=== PATIENT | female | born 1940 | race Caucasian/White ===

== ENCOUNTER 2016-10-21 13:49 | Inpatient (IN) | payer MEDICARE, BC ==
[~2016-10-21] VITALS: Ht 180.3 cm; Wt 75.1 kg
[2016-10-22] MEDS ORDERED: ALPR.25 PO (10:18)
[2016-10-22] MEDS ORDERED: LACTCAP8 PO (10:18)
[2016-10-22] MEDS ORDERED: APIX2.5T PO (10:18)
[2016-10-22] MEDS ORDERED: MIRA25TA PO (10:18)
[2016-10-22] MEDS ORDERED: [UNRECOGNIZED DRUG - CODE] (10:19)
[2016-10-29 11:55] VITALS: BP 144/69; PULSE 85; RESP 16; TEMP 97.2; O2SAT 98
[2016-10-29] MEDS ORDERED: METRONIDAZOLE 500 MG/100 ML ISONTONIC SOLN IV ONE (12:00)
[2016-10-29] MEDS ORDERED: DEXT 5%-NACL 0.9% 1000 ML INJ 1,000 ML IV SCH (12:00)
[2016-10-29] MEDS ORDERED: METOPROLOL TARTRATE 25 MG TAB PO PRN (12:00)
[2016-10-29] MEDS ORDERED: CHLORHEXIDINE GLUCONATE 2 % 1 PACK (2 CLOTHS) TOPICAL PRN (12:00)
[2016-10-29] MEDS ORDERED: SODIUM CHLORID 0.9% 500 ML IV PRN (12:00)
[2016-10-29] MEDS ORDERED: ONDANSETRON HCL 4 MG/2 ML VIAL IV PUSH ONE (12:00)
[2016-10-29] MEDS ORDERED: PROPOFOL 200 MG/20 ML AMP IV ONE (12:00)
[2016-10-29] MEDS ORDERED: VECURONIUM BROMIDE 10 MG VIAL IV ONE (12:00)
[2016-10-29] MEDS ORDERED: LACTATED RINGER'S 1000 ML INJ 3,000 ML IV ONE (12:00)
[2016-10-29] MEDS ORDERED: PHENYLEPH/NS 1000 MCG/10 ML SYR IV ONE (12:00)
[2016-10-29] MEDS ORDERED: LACTATED RINGER'S 1000 ML IV PRN (12:00)
[2016-10-29] MEDS ORDERED: SUGAMMADEX SODIUM 200 MG/2 ML VIAL IV PUSH ONE ×2 (12:00)
[2016-10-29] MEDS ORDERED: ceFAZolin 2 GM PREMIX 50 ML IV ONE (12:00)
[2016-10-29] MEDS ORDERED: INSULIN HUMAN REGULAR 1,000 UNITS/10 ML VIAL SQ PRN (12:00)
[2016-10-29] MEDS ORDERED: VANCOMYCIN 1,000 MG/NS 250 ML IV ONE ×2 (15:00)
[2016-10-29] MEDS ORDERED: CLINDAMYCIN PHOS 600 MG/4 ML VIAL ONE (15:13)
[2016-10-29] MEDS ORDERED: MIDAZOLAM HCL 2 MG/2 ML VIAL ONE ×2 (15:26→20:52)
[2016-10-29] MEDS ORDERED: DEXAMETHASONE SOD PHOS 4 MG/ML VIAL ONE (15:27)
[2016-10-29] MEDS ORDERED: FAMOTIDINE 20 MG/2 ML VIAL ONE (15:27)
[2016-10-29] MEDS ORDERED: STERILE WATER FOR INJ 20 ML VIAL ONE (16:40)
--- NOTE | 2016-10-29 16:49 | MP ---
cc: LORRAINE LOZA DATE OF SURGERY: 10/29/2016 PREOPERATIVE DIAGNOSIS: History of colon cancer. POSTOPERATIVE DIAGNOSIS History of colon cancer. PROCEDURE: Cystoscopy with bilateral ureteral catheter placement. SURGEON Lorraine Loza MD. ANESTHESIA: General endotracheal anesthesia FLUIDS: 100 cc crystalloid. ESTIMATED BLOOD LOSS: There was no blood loss. COMPLICATIONS: No complications. DRAINS: Drains were two, 5-Palauan bilateral ureteral catheters and a 16-Palauan Figueroa. HISTORY: Ms. Carol Osullivan is a 76-year-old female who was elected to undergo robotic-assisted laparoscopic colectomy by Dr. Cormier for history of colon cancer. Request was made for bilateral ureteral catheter placement. The patient was brought to operating room identified by myself as Carol Ragsdale. She is placed in dorsal lithotomy position, prepped in usual sterile fashion, received preprocedure antibiotics, and general endotracheal tube anesthesia was administered. A 22-Palauan cystoscope was inserted bladder and wild cystoscopy did not reveal any abnormalities. The left ureteral orifice was identified and a 5-Palauan open ended catheter was inserted into the left ureteral orifice and up into the kidney without difficulty. This was again repeated on the right side without difficulty. The 16-Palauan Figueroa was then inserted into the bladder and catheters were attached to the Figueroa catheter. She tolerated the procedure well. Lorraine ANGEL/deepali /4:30 PM /4:39 PM
[2016-10-29] MEDS ORDERED: fentaNYL CITRATE 250 MCG/5 ML AMP ONE ×2 (17:06→20:53)
[2016-10-29] MEDS ORDERED: MORPHINE SULFATE 4 MG/ML INJ ONE ×2 (17:06)
[2016-10-29] MEDS ORDERED: DO NOT ADM ANY ANTICOAGULANT DRUGS PRN (22:00)
[2016-10-29] MEDS ORDERED: ENALAPRILAT 2.5 MG/2 ML VIAL IV PRN (22:00)
[2016-10-29] MEDS ORDERED: BENZOCAINE 6 MG/MENTHOL 10 MG LOZENGE BUCCAL PRN (22:00)
[2016-10-29] MEDS ORDERED: SODIUM CHLORIDE 0.9% FLUSH 5 ML FLUSH IVF PRN (22:00)
[2016-10-29] MEDS ORDERED: POTASSIUM CHLOR 20 MEQ PREMIX 100 ML IV PRN (22:00)
[2016-10-29] MEDS ORDERED: NALOXONE HCL 0.4 MG/ML AMP IV PRN (22:00)
[2016-10-29] MEDS ORDERED: MORPHINE SULFATE 30 MG/30 ML PCA IV SCH (22:00)
[2016-10-29] MEDS ORDERED: ENALAPRILAT 1.25 MG/ML VIAL IV PRN (22:00)
[2016-10-29] MEDS: PCA - TOTAL MG MORPHINE DELIVERED PER SHIFT SCH (22:00)
[2016-10-29] MEDS ORDERED: ACETAMINOPHEN/HYDROcodone 325 MG/5 MG TAB PO PRN ×2 (22:00)
[2016-10-29] MEDS ORDERED: ACETAMINOPHEN 325 MG TAB PO PRN (22:00)
[2016-10-29] MEDS ORDERED: POTASSIUM CHLOR 40 MEQ PREMIX 100 ML IV PRN (22:00)
[2016-10-29] MEDS ORDERED: Post-op Orders (for Pharmacy) MISC XX ONE (22:00)
[2016-10-29] MEDS ORDERED: D5-1/2 NS + KCL 20 MEQ INJ 1,000 ML ONE (22:23)
[2016-10-29] MEDS ORDERED: MEPERIDINE HCL 25 MG/ML VIAL ONE (22:32)
[2016-10-29 22:33] LABS: AUTOMATED NEUTROPHIL # 10.2 TH/MM3 (1.8-7.7); BASOPHIL # 0.1 TH/MM3 (0-0.2); BASOPHIL % 0.6 % (0.0-2.0); HEMATOCRIT 38.4 % (35.0-46.0); HEMO FLAGS DIFF FINAL; LYMPH % 3.8 % (9.0-44.0); LYMPHOCYTE # 0.4 TH/MM3 (1.0-4.8); MEAN CELL VOLUME 92.8 FL (80.0-100.0); MEAN CORPUSCULAR HEMOGLOBIN 29.9 PG (27.0-34.0); MEAN CORPUSCULAR HGB CONC 32.2 % (32.0-36.0); MONO % 2.3 % (0.0-8.0); NEUT % 93.3 % (16.0-70.0); PLATELET COUNT 202 TH/MM3 (150-450); RED BLOOD COUNT 4.14 MIL/MM3 (4.00-5.30); RED CELL DISTRIBUTION WIDTH 14.3 % (11.6-17.2); WHITE BLOOD COUNT 10.9 TH/MM3 (4.0-11.0)
[2016-10-29] MEDS: KETOROLAC TROMETHAMINE 30 MG/ML (IVP) VIAL IVP SCH (22:40)
[2016-10-29 22:58] LABS: BICARBONATE 19.9 MEQ/L (21.0-32.0); POTASSIUM 4.4 MEQ/L (3.5-5.1)
[2016-10-29] MEDS: SODIUM CHLORIDE 0.9% FLUSH 5 ML FLUSH IVF SCH (23:00)
[2016-10-29] MEDS ORDERED: metroNIDAZOLE 500 MG INJ 100 ML IV SCH (23:00)
[2016-10-29] MEDS: D5-NS + KCL 20 MEQ INJ 1,000 ML IV SCH (23:00)
[2016-10-30] VITALS (14 sets, daily range): BP systolic 91–159; BP diastolic 51–65; PULSE 68–85; RESP 14–19; TEMP 96.5–98.7; O2SAT 92–97
[2016-10-30] MEDS: metroNIDAZOLE 500 MG INJ 100 ML IV SCH ×3 (00:15→16:49)
[2016-10-30] MEDS ORDERED: VANCOMYCIN INJ 1,000 MG in SODIUM CHLOR 0.9% 250 ML INJ 250 ML IV SCH (03:00)
[2016-10-30] MEDS: KETOROLAC TROMETHAMINE 30 MG/ML (IVP) VIAL IVP SCH ×4 (03:56→21:49)
[2016-10-30] MEDS: PCA - TOTAL MG MORPHINE DELIVERED PER SHIFT SCH ×3 (05:26→21:50)
[2016-10-30] MEDS: D5-NS + KCL 20 MEQ INJ 1,000 ML IV SCH ×3 (05:26→21:49)
[2016-10-30 07:52] LABS: AUTOMATED NEUTROPHIL # 10.2 TH/MM3 (1.8-7.7); BASOPHIL % 0.2 % (0.0-2.0); HEMO FLAGS DIFF FINAL; LYMPH % 4.2 % (9.0-44.0); LYMPHOCYTE # 0.5 TH/MM3 (1.0-4.8); MEAN CELL VOLUME 92.6 FL (80.0-100.0); MEAN CORPUSCULAR HEMOGLOBIN 30.5 PG (27.0-34.0); MEAN CORPUSCULAR HGB CONC 32.9 % (32.0-36.0); MONO % 4.1 % (0.0-8.0); NEUT % 91.5 % (16.0-70.0); PLATELET COUNT 192 TH/MM3 (150-450); RED BLOOD COUNT 3.67 MIL/MM3 (4.00-5.30); RED CELL DISTRIBUTION WIDTH 14.2 % (11.6-17.2); WHITE BLOOD COUNT 11.2 TH/MM3 (4.0-11.0)
[2016-10-30 08:20] LABS: BICARBONATE 23.7 MEQ/L (21.0-32.0); POTASSIUM 4.5 MEQ/L (3.5-5.1)
[2016-10-30] MEDS ORDERED: MYRBETRIQ 25 MG PO SCH (09:00)
[2016-10-30] MEDS: SODIUM CHLORIDE 0.9% FLUSH 5 ML FLUSH IVF SCH ×2 (09:00→21:00)
--- NOTE | 2016-10-30 09:08 | HHI.PR ---
Subjective Remarks C/R Surg POD #1 afebrile, VSS UO adeq Objective - Vital Signs Date Time Temp Pulse Resp B/P Pulse Ox O2 Delivery O2 Flow Rate FiO2 10/30/16 06:00 70 10/30/16 06:00 16 10/30/16 04:10 97 Nasal Cannula 3.00 10/30/16 04:10 97.5 104/56 Result Diagram: 10/30/16 0703 10/30/16 0703 Objective Remarks PE alert Abd - soft, wounds clean/dry A/P Assessment and Plan Imp: stable post-op OOB decr IVF tx to floor Gaetano Pitts MD Oct 30, 2016 09:08
[2016-10-30] MEDS: PANTOPRAZOLE SODIUM 40 MG VIAL IVP SCH (10:53)
[2016-10-30] MEDS: diphenhydrAMINE HCL 50 MG/ML VIAL IV PRN ×2 (12:32→18:19)
[2016-10-30] MEDS: HEPARIN SODIUM - SQ 10,000 UNITS/ML VIAL SQ SCH (21:49)
[2016-10-31] VITALS (8 sets, daily range): BP systolic 93–126; BP diastolic 50–58; PULSE 74–103; RESP 16–18; TEMP 96.4–98.4; O2SAT 92–97
[2016-10-31] MEDS: KETOROLAC TROMETHAMINE 30 MG/ML (IVP) VIAL IVP SCH ×4 (04:18→21:30)
[2016-10-31] MEDS: PCA - TOTAL MG MORPHINE DELIVERED PER SHIFT SCH (04:18)
[2016-10-31] MEDS: SODIUM CHLORIDE 0.9% FLUSH 5 ML FLUSH IVF SCH ×2 (08:55→21:00)
[2016-10-31] MEDS: HEPARIN SODIUM - SQ 10,000 UNITS/ML VIAL SQ SCH ×2 (09:02→21:30)
[2016-10-31] MEDS: PANTOPRAZOLE SODIUM 40 MG VIAL IVP SCH (09:03)
--- NOTE | 2016-10-31 09:41 | HHI.PR ---
Subjective Remarks C/R Surg POD #2 afebrile, VSS UO adeq +hungry Objective - Vital Signs Date Time Temp Pulse Resp B/P Pulse Ox O2 Delivery O2 Flow Rate FiO2 10/31/16 04:23 94 Nasal Cannula 2.00 10/31/16 04:22 97.8 77 17 93/51 Result Diagram: 10/30/16 0703 10/30/16 0703 Objective Remarks PE alert Abd - soft, wounds clean/dry min tympany A/P Assessment and Plan Imp: OOB decr IVF adv diet Gaetano Pitts MD Oct 31, 2016 09:41
[2016-10-31 15:55] LABS: AUTOMATED NEUTROPHIL # 5.8 TH/MM3 (1.8-7.7); BASOPHIL % 0.3 % (0.0-2.0); EOSINOPHIL # 0.4 TH/MM3 (0-0.4); EOSINOPHIL % 5.4 % (0.0-4.0); HEMO FLAGS DIFF FINAL; LYMPH % 14.7 % (9.0-44.0); LYMPHOCYTE # 1.2 TH/MM3 (1.0-4.8); MEAN CELL VOLUME 93.9 FL (80.0-100.0); MEAN CORPUSCULAR HEMOGLOBIN 30.5 PG (27.0-34.0); MEAN CORPUSCULAR HGB CONC 32.5 % (32.0-36.0); MONO % 8.7 % (0.0-8.0); NEUT % 70.9 % (16.0-70.0); PLATELET COUNT 176 TH/MM3 (150-450); RED BLOOD COUNT 3.41 MIL/MM3 (4.00-5.30); RED CELL DISTRIBUTION WIDTH 14.7 % (11.6-17.2); WHITE BLOOD COUNT 8.1 TH/MM3 (4.0-11.0)
[2016-10-31] MEDS: D5-NS + KCL 20 MEQ INJ 1,000 ML IV SCH (16:00)
[2016-10-31 16:25] LABS: BICARBONATE 24.7 MEQ/L (21.0-32.0); POTASSIUM 4.9 MEQ/L (3.5-5.1)
[2016-11-01 00:01] VITALS: BP 131/64; PULSE 98; RESP 17; TEMP 98.6; O2SAT 97
[2016-11-01] MEDS: KETOROLAC TROMETHAMINE 30 MG/ML (IVP) VIAL IVP SCH ×3 (05:19→16:51)
[2016-11-01] MEDS: D5-NS + KCL 20 MEQ INJ 1,000 ML IV SCH ×3 (05:19→16:35)
[2016-11-01] MEDS: ONDANSETRON HCL 4 MG/2 ML VIAL IV PRN ×3 (06:19→18:08)
[2016-11-01 07:16] LABS: AUTOMATED NEUTROPHIL # 5.2 TH/MM3 (1.8-7.7); BASOPHIL % 0.3 % (0.0-2.0); EOSINOPHIL # 0.5 TH/MM3 (0-0.4); EOSINOPHIL % 6.9 % (0.0-4.0); HEMATOCRIT 33.6 % (35.0-46.0); HEMO FLAGS DIFF FINAL; LYMPH % 13.8 % (9.0-44.0); MEAN CORPUSCULAR HEMOGLOBIN 31.2 PG (27.0-34.0); MEAN CORPUSCULAR HGB CONC 33.6 % (32.0-36.0); MONO % 8.8 % (0.0-8.0); NEUT % 70.2 % (16.0-70.0); PLATELET COUNT 195 TH/MM3 (150-450); RED BLOOD COUNT 3.61 MIL/MM3 (4.00-5.30); RED CELL DISTRIBUTION WIDTH 14.5 % (11.6-17.2); WHITE BLOOD COUNT 7.3 TH/MM3 (4.0-11.0)
[2016-11-01 07:49] LABS: BICARBONATE 24.6 MEQ/L (21.0-32.0); POTASSIUM 4.5 MEQ/L (3.5-5.1)
[2016-11-01 08:00] VITALS: BP 145/67; PULSE 100; RESP 18; TEMP 97.2; O2SAT 97
[2016-11-01] MEDS: HEPARIN SODIUM - SQ 10,000 UNITS/ML VIAL SQ SCH ×2 (08:20→20:42)
[2016-11-01] MEDS: PANTOPRAZOLE SODIUM 40 MG VIAL IVP SCH (08:21)
[2016-11-01] MEDS: SODIUM CHLORIDE 0.9% FLUSH 5 ML FLUSH IVF SCH ×2 (08:21→20:41)
[2016-11-01 12:00] VITALS: BP 137/71; PULSE 96; RESP 17; TEMP 97.3; O2SAT 90
--- NOTE | 2016-11-01 14:54 | HHI.PR ---
Subjective Remarks POD#3 s/p LAR, DEJAN for diverticulitis Very fatigued, pain well controlled, breathing mildly difficult Objective Vital Signs Date Time Temp Pulse Resp B/P Pulse Ox O2 Delivery O2 Flow Rate FiO2 11/01/16 12:00 97.3 96 17 137/71 90 11/01/16 08:00 97.2 100 18 145/67 97 11/01/16 06:19 18 11/01/16 00:01 98.6 98 17 131/64 97 10/31/16 21:30 Nasal Cannula 2.00 10/31/16 20:39 98.4 100 18 123/58 93 10/31/16 19:00 93 10/31/16 16:00 96.4 103 18 126/58 93 I/O 10/31/16 10/31/16 10/31/16 11/01/16 11/01/16 11/01/16 07:00 15:00 23:00 07:00 15:00 23:00 Intake Total 885 ml 1765 ml 863 ml 360 ml 240 ml Output Total 300 ml 200 ml 800 ml 1000 ml Balance 585 ml 1565 ml 63 ml -640 ml 240 ml Intake Oral 360 ml 1380 ml 480 ml 360 ml 240 ml IV Total 525 ml 385 ml 383 ml Output Urine Total 300 ml 200 ml 800 ml 1000 ml # Voids 0 6 # Bowel Movements 0 0 1 5 Result Diagram: 11/01/16 0549 11/01/16 0549 Objective Remarks Abdomen soft, moderate distension, tender Wounds clean Assessment and Plan Assessment and Plan Still quite bloated Go slow on PO Mobilize as much as possible Reiterated pulmonary toilet Dang Cormier MD Nov 01, 2016 14:54
[2016-11-01 16:00] VITALS: BP 143/72; PULSE 107; RESP 17; TEMP 97.5; O2SAT 96
[2016-11-01 20:00] VITALS: BP 141/95; PULSE 87; RESP 20; TEMP 97.7; O2SAT 99
[2016-11-01] MEDS: ALPRAZolam 0.25 MG TAB PO PRN (22:14)
[2016-11-02] VITALS: BP 113/56; PULSE 96; RESP 19; TEMP 98.8; O2SAT 98
[2016-11-02] MEDS: D5-NS + KCL 20 MEQ INJ 1,000 ML IV SCH (00:17)
[2016-11-02] MEDS: ONDANSETRON HCL 4 MG/2 ML VIAL IV PRN ×3 (05:17→21:44)
[2016-11-02] MEDS: PANTOPRAZOLE SODIUM 40 MG VIAL IVP SCH (07:52)
[2016-11-02] MEDS: HEPARIN SODIUM - SQ 10,000 UNITS/ML VIAL SQ SCH ×2 (07:53→21:43)
[2016-11-02] MEDS: SODIUM CHLORIDE 0.9% FLUSH 5 ML FLUSH IVF SCH ×2 (07:53→21:00)
[2016-11-02 08:00] VITALS: BP 116/55; PULSE 87; RESP 17; TEMP 96.8; O2SAT 99
--- NOTE | 2016-11-02 09:32 | MP ---
cc: SADAF CORMIER M.D., KELLY J. DATE OF SURGERY October 29, 2016 PREOPERATIVE DIAGNOSIS Diverticulitis. POSTOPERATIVE DIAGNOSIS Diverticulitis with adhesions. PROCEDURE 1. Robotic/laparoscopic extensive lysis of adhesions. 2. Robotic low anterior resection. 3. Robotic takedown of splenic flexure. SURGEON [employer] Ant ANESTHESIA General per ET tube. ESTIMATED BLOOD LOSS 450 cc. OPERATIVE INDICATIONS The patient is a 76-year-old female with a history of severe complicated diverticulitis. OPERATIVE FINDINGS The liver was visibly normal. The gallbladder was not visualized. The female organs were not present. The sigmoid colon was inflamed and adherent down into the pelvis. It was folded over on itself three times. OPERATIVE COURSE The patient was brought to the operating room, placed in the supine position. After induction of general anesthesia the patient was placed in Abdirashid stirrups and all bony prominences were carefully padded. The skin of the anterior abdominal wall as well as the perineal area was then prepped and draped in the usual sterile fashion. Dr. Loza then came in and performed cystoscopy with placement of bilateral ureteral catheters, please see his operative note for details. A site was then chosen for the camera just above the umbilicus. The 5 trocar was placed just under the right costal margin in right midclavicular line. This was placed first under direct vision. Using a laparoscope CO2 insufflation was then undertaken and no significant adhesions that would prevent the robotic approach were noted. The remainder of the ports were then placed as followed: The #1 10/12 port was placed just inside the right anterior superior iliac spine and the camera port was placed just above the umbilicus. The patient was hydroplaned with head down and slightly to the right. The descending colon was evaluated and it did not feel that we had adequate length to proceed without the splenic flexure so the remainder of the ports were placed as follows: The #3 port was placed in line with the umbilicus in the left anterior axillary line and a #2 port was placed in the left mid axillary line three fingerbreadths above the umbilicus. The omentum was brought up-and-over the transverse colon and the patient was immediately noted have dense severe adhesions of the pelvis. Small bowel was not adhesed but it was very difficult to bring up and out of the pelvis and we elected to proceed with the surgery. The robot was then docked and multiple attempts were made to dissect with the small bowel but eventually we did need to place a lap in the belly and do almost a sling, pulling the small bowel up enough to the right. This allowed better visualization. The sigmoid colon retracted down into the left but I had a lot of trouble getting into the appropriate plane on the right side as she had a very floppy colon and so I elected to use a more lateral approach. The descending colon and sigmoid colon retracted to the right and the lateral peroneal attachments of the descending and sigmoid colon were carefully dissected free using electrocautery. This was continued up to the level of but not quite around the splenic flexure at this point. Dissection continued posteriorly until the left ureter was clearly identified and swept away from the specimen. We then slowly and painstakingly dissected free three separate loops of sigmoid that were folded over and stuck down into the pelvis. This was a very slow tedious dissection and did entail quite a bit of blood loss. Eventually, we were able to however straighten out the colon and get a better feel. It was quite a bit of diseased colon. There was a small abscess in the left pelvic sidewall which was quite shallow however. A sponge stick was placed in the rectum and a site was chosen for division. The rectum just at the upper rectal junction the posterior dissection was continued down to level of the mid rectum and up and around the right and left lateral side again due to her high inflammatory state. There was quite a bit of blood loss during this whole process. The mesentery at the proposed resection site was then cleared using the harmonic scalpel. A blue load of the echelon Endo stapler was brought onto the field placed across the bowel at this level, closed, held for 30 seconds, fired and removed. At this point an attempt was made to put the 33 EEA stapler up through the anus and it came nicely through the anus and the distal rectum, but had trouble coming up to the rectal stump so we changed over a 29 EEA. After placing the 29 EEA stapler in we did note however that she had a kink where it was folded that I had not yet realized. With that I dissected back an additional 7 to 8 cm and a reload of the MARY was placed across this lower dissection margin. This was closed, held for 30 seconds, fired and removed. The edge of bowel was then removed through the 10/12 trocar site. The stapler was placed up through the right anus into the rectal stump came nicely a small amount of fibrofatty tissue was then cleared off. Additional dissection was continued posteriorly up and around the splenic flexure freeing the distal transverse colon, descending colon and proximal sigmoid colon where the pink and healthy bowel came down nicely to the rectal stump without tension. We then elected to proceed with the open portion of the procedure. The robot was then undocked. A site was then chosen for the incision just in the suprapubic area. A 12-14 cm transverse incision was made using electrocautery. Dissection was carried down to pass the anterior abdominal which was split the length of the skin incision. The posterior fascia, left peritoneum was then divided as were the medial fibers of the rectus abdominis muscle. A wound protector was then placed and the proximal stapled end of the bowel was grasped and pulled up and out through the incision. Site was chosen for proximal division of bowel where the bowel appeared pink and healthy. The mesentery at this level serially divided and ligated using 0 Vicryl ties and a pursestring stapling device was placed across the bowel at this level. The distal bowel was with Kalyan clamp. The bowel was amputated. The anvil from the 29 EEA stapler was placed in the cut end of the bowel and the previously placed pursestring suture was then secured. The pelvis was then examined and there was some bleeding noted which was controlled using electrocautery and some hemostatic SNoW was then placed also in the pelvis. The stapler was advanced through the anus and up to the rectal stump. The spike was advanced just anterior to the staple line. The anvil was into the spike being careful the bowel was not twisted. This was closed, held for 30 seconds, fired and removed, thus creating , both anastomotic rings appeared to be complete and the anastomosis appeared pink and healthy circumferentially. A small amount of warm normal saline was placed in the pelvis. The proximal bowel was occluded with digital pressure, air was insufflated extent possible until gentle tension was noted on the anastomosis with no sign of any leakage noted. The patient tolerated the procedure well. The anastomosis lay in a nice orientation and was tension-free. The posterior fascia at this incision was closed in running fashion using #1 PDS and the anterior fascia was closed in a running fashion using #1 PDS. was then placed across the wound. CO2 insufflation was then resumed. The 10/12 trocar sites were then closed using the crossbow suture device and 0 Vicryl suture. These were placed but not closed until the abdominal wall was desufflated to the extent possible. The air was desufflated to the extent possible, trocars were removed. The previously placed fascial sutures were secured. All wounds were copiously irrigated with warm normal saline. The skin at the suprapubic incision was closed in a running subcu fashion using 3-0 Vicryl and the trocar sites were closed in interrupted subcuticular fashion using 3-0 Vicryl. Steri-Strips and sterile dressings were then applied. All sponge, needle and instrument counts were correct and the patient was returned to the Post Anesthesia Care Unit in stable condition. Sadaf Cormier MD KW/EO /9:54 PM /9:25 AM
--- NOTE | 2016-11-02 09:33 | HHI.PR ---
Subjective Remarks POD#4 s/p LAR, DEJAN for diverticulitis Improved, passing slight mucus every 30-45 minutes Objective Vital Signs Date Time Temp Pulse Resp B/P Pulse Ox O2 Delivery O2 Flow Rate FiO2 11/02/16 08:00 96.8 87 17 116/55 99 11/02/16 00:00 98.8 96 19 113/56 98 11/01/16 20:30 97 Nasal Cannula 2.00 11/01/16 20:00 97.7 87 20 141/95 99 11/01/16 16:00 97.5 107 17 143/72 96 11/01/16 12:00 97.3 96 17 137/71 90 I/O 11/01/16 11/01/16 11/01/16 11/02/16 11/02/16 11/02/16 06:59 14:59 22:59 06:59 14:59 22:59 Intake Total 360 ml 240 ml 386 ml 390 ml Output Total 1000 ml Balance -640 ml 240 ml 386 ml 390 ml Intake Oral 360 ml 240 ml 240 ml 120 ml IV Total 146 ml 270 ml Output Urine Total 1000 ml # Voids 6 3 1 # Bowel Movements 1 5 6 5 Result Diagram: 11/01/16 0549 11/01/16 0549 Objective Remarks Abdomen soft, moderate distension, tender Wounds clean Assessment and Plan Assessment and Plan postop ileus Continue minimal PO Encouraged PO Dang Cormier MD Nov 02, 2016 09:33
[2016-11-02 12:00] VITALS: BP 107/58; PULSE 77; RESP 17; TEMP 96.5; O2SAT 99
[2016-11-02 16:00] VITALS: BP 135/60; PULSE 81; RESP 17; TEMP 98.3; O2SAT 98
[2016-11-02 20:00] VITALS: BP 131/61; PULSE 91; RESP 17; TEMP 98.4; O2SAT 94
[2016-11-02] MEDS: ALPRAZolam 0.25 MG TAB PO PRN (21:44)
[2016-11-03] VITALS: BP 118/58; PULSE 89; RESP 18; TEMP 97; O2SAT 96
[2016-11-03] MEDS: D5-NS + KCL 20 MEQ INJ 1,000 ML IV SCH (00:17)
[2016-11-03 08:00] VITALS: BP 113/57; PULSE 92; RESP 16; TEMP 98.5; O2SAT 100
--- NOTE | 2016-11-03 08:13 | HHI.PR ---
Subjective Remarks POD#5 s/p LAR, DEJAN for diverticulitis Less bloated, still with frequent BM Objective Vital Signs Date Time Temp Pulse Resp B/P Pulse Ox O2 Delivery O2 Flow Rate FiO2 11/03/16 00:00 97.0 89 18 118/58 96 11/02/16 21:00 Room Air 11/02/16 20:00 98.4 91 17 131/61 94 11/02/16 16:00 98.3 81 17 135/60 98 11/02/16 12:00 96.5 77 17 107/58 99 I/O 11/02/16 11/02/16 11/02/16 11/03/16 11/03/16 11/03/16 07:00 15:00 23:00 07:00 15:00 23:00 Intake Total 390 ml 820 ml 416 ml 536 ml Output Total 700 ml Balance 390 ml 820 ml 416 ml -164 ml Intake Oral 120 ml 600 ml 240 ml 220 ml IV Total 270 ml 220 ml 176 ml 316 ml Output Urine Total 700 ml # Voids 1 5 2 # Bowel Movements 5 0 2 Result Diagram: 11/01/16 0549 11/01/16 0549 Objective Remarks Abdomen soft, mild distension, tender Wounds clean Assessment and Plan Assessment and Plan Advance diet Hoper for transfer tomorrow Dang Cormier MD Nov 03, 2016 08:13
[2016-11-03] MEDS: SODIUM CHLORIDE 0.9% FLUSH 5 ML FLUSH IVF SCH ×2 (08:48→21:00)
[2016-11-03] MEDS: PANTOPRAZOLE SODIUM 40 MG VIAL IVP SCH (08:48)
[2016-11-03] MEDS: HEPARIN SODIUM - SQ 10,000 UNITS/ML VIAL SQ SCH ×2 (08:48→21:18)
[2016-11-03 12:00] VITALS: BP 102/50; PULSE 100; RESP 22; TEMP 96.5; O2SAT 96
[2016-11-03 20:00] VITALS: BP 122/59; PULSE 93; RESP 16; TEMP 98.1; O2SAT 96
[2016-11-03] MEDS: ONDANSETRON HCL 4 MG/2 ML VIAL IV PRN (21:19)
[2016-11-03] MEDS: ALPRAZolam 0.25 MG TAB PO PRN (23:49)
[2016-11-04] VITALS: BP 116/53; PULSE 96; RESP 16; TEMP 98.5; O2SAT 95
[2016-11-04 08:00] VITALS: BP 118/56; PULSE 99; RESP 16; TEMP 96.5; O2SAT 97
[2016-11-04] MEDS: SODIUM CHLORIDE 0.9% FLUSH 5 ML FLUSH IVF SCH (09:00)
[2016-11-04] MEDS: PANTOPRAZOLE SODIUM 40 MG VIAL IVP SCH (09:00)
[2016-11-04] MEDS: HEPARIN SODIUM - SQ 10,000 UNITS/ML VIAL SQ SCH (09:00)
[2016-11-04 12:00] VITALS: BP 98/46; PULSE 84; RESP 16; TEMP 98.4; O2SAT 93
[2016-11-04 16:00] VITALS: BP 97/46; PULSE 93; RESP 16; TEMP 99.9; O2SAT 93
--- NOTE | 2016-11-04 17:33 | HHI.PR ---
Subjective Remarks POD#6 s/p LAR, DEJAN for diverticulitis Comfortable, ready to go to rehab Objective Vital Signs Date Time Temp Pulse Resp B/P Pulse Ox O2 Delivery O2 Flow Rate FiO2 11/04/16 16:00 99.9 93 16 97/46 93 11/04/16 12:00 98.4 84 16 98/46 93 11/04/16 08:00 96.5 99 16 118/56 97 11/04/16 00:00 98.5 96 16 116/53 95 11/03/16 20:00 98.1 93 16 122/59 96 I/O 11/03/16 11/03/16 11/03/16 11/04/16 11/04/16 11/04/16 07:00 15:00 23:00 07:00 15:00 23:00 Intake Total 536 ml 0 ml 360 ml Output Total 700 ml Balance -164 ml 0 ml 360 ml Intake Oral 220 ml 360 ml IV Total 316 ml 0 ml Output Urine Total 700 ml # Voids 1 1 3 # Bowel Movements 2 1 1 1 Result Diagram: 11/01/16 0549 11/01/16 0549 Objective Remarks Abdomen soft, mild distension, tender Wounds clean Assessment and Plan Assessment and Plan Transfer Dang Cormier MD Nov 04, 2016 17:33
[2016-11-04] MEDS ORDERED: HYDR-3516 PO (17:36)
[2016-11-04] MEDS: ALPRAZolam 0.25 MG TAB PO PRN (18:12)
--- NOTE | 2016-11-09 13:29 | MD ---
cc: SADAF SHAH M.D. ADMISSION DATE: 10/29/2016 DISCHARGE DATE: 11/04/2016 ADMISSION DIAGNOSIS Diverticulitis DISCHARGE DIAGNOSIS Diverticulitis PROCEDURE 1. Cystoscopy with placement of bilateral ureteral catheters. 2. Robotic/laparoscopic extensive lysis of adhesions. 3. Robotic low anterior resection 4. Robotic takedown of the splenic flexure. HOSPITAL COURSE The patient is a 76-year-old female with a history of severe complicated diverticulitis. She was admitted to the hospital on October 29, 2016 after an outpatient bowel prep. She was taken to the operating room where she underwent the above-named procedures. Postoperatively she did well although she had a fairly slow return of bowel and bladder function with a small ileus. She was discharged to rehab on November 04, 2016. MD PAULA Farris/STAN /5:36 PM /1:22 PM
== END 2016-11-04 20:01 | DRG 330 ==
LOC: HSDI 10-29 10:56 → HCIS 10-30 00:50 → N07A 10-30 14:10
PROVIDERS: ADMIT Colon & Rectal Surgery; ATTEND Colon & Rectal Surgery
PROC: 0DNN4ZZ Release Sigmoid Colon, Percutaneous Endoscopic Approach (ICD-10-PCS; 2016-10-29)
PROC: 8E0W4CZ Robotic Assisted Procedure of Trunk Region, Percutaneous Endoscopic Approach (ICD-10-PCS; 2016-10-29)
PROC: 0DTN0ZZ Resection of Sigmoid Colon, Open Approach (ICD-10-PCS; principal; 2016-10-29 15:30)
PROC: 0T788DZ Dilation of Bilateral Ureters with Intraluminal Device, Via Natural or Artificial Opening Endoscopic (ICD-10-PCS; 2016-10-29 15:30)
DX: K57.20 Diverticulitis of large intestine with perforation and abscess without bleeding (principal); K56.7 Ileus, unspecified; K91.89 Other postprocedural complications and disorders of digestive system; K66.0 Peritoneal adhesions (postprocedural) (postinfection); Z85.038 Personal history of other malignant neoplasm of large intestine; I25.2 Old myocardial infarction; Z86.73 Personal history of transient ischemic attack (TIA), and cerebral infarction without residual deficits; Z86.718 Personal history of other venous thrombosis and embolism; Z87.891 Personal history of nicotine dependence
CPT/HCPCS: 76937; 80048; 85025; 86850; 86900; 86901; 88307; 88309; 94150; C9113; J1100; J1200; J1644; J1885; J2175; J2250; J2270; J2370; J2405; J3010; J3370; J3480; J7050; J7120

== ENCOUNTER → 2016-10-22 | Outpatient (CLI) | payer MEDICARE, BC ==
[~2016-10-22] MED LIST: ALPR.25 PO; APIX2.5T PO; LACTCAP8 PO; MIRA25TA PO; [UNRECOGNIZED DRUG - CODE]
[2016-10-22 11:17] LABS: AUTOMATED NEUTROPHIL # 2.7 TH/MM3 (1.8-7.7); BASOPHIL % 0.4 % (0.0-2.0); EOSINOPHIL # 0.2 TH/MM3 (0-0.4); EOSINOPHIL % 4.2 % (0.0-4.0); HEMATOCRIT 36.3 % (35.0-46.0); HEMO FLAGS DIFF FINAL; LYMPH % 31.6 % (9.0-44.0); LYMPHOCYTE # 1.6 TH/MM3 (1.0-4.8); MEAN CELL VOLUME 90.9 FL (80.0-100.0); MEAN CORPUSCULAR HEMOGLOBIN 30.6 PG (27.0-34.0); MEAN CORPUSCULAR HGB CONC 33.7 % (32.0-36.0); MONO % 9.4 % (0.0-8.0); NEUT % 54.4 % (16.0-70.0); PLATELET COUNT 242 TH/MM3 (150-450); RED CELL DISTRIBUTION WIDTH 14.6 % (11.6-17.2)
[2016-10-22 11:24] LABS: BACTERIA, URINE RARE /hpf; BLOOD, URINE NEG (NEG); COMMENT (UR) CULT NOT INDICATED; CULTURE IF INDICATED CULT NOT INDICATED; GLUCOSE,URINE NEG (NEG); KETONE, URINE NEG (NEG); MUCUS URINE FEW /lpf (OCC); NITRITE,URINE NEG (NEG); TRANSITIONAL EPI CELLS, URINE <1 /hpf; URINE COLOR YELLOW (YELLW/STRAW)
[2016-10-22 11:25] LABS: APTT (PATIENT) 27.4 SEC (24.3-30.1)
[2016-10-22 11:28] LABS: ANION GAP 9 MEQ/L (5-15); AST (GOT) 22 U/L (15-37); BICARBONATE 25.7 MEQ/L (21.0-32.0); BLOOD UREA NITROGEN 14 MG/DL (7-18); CHLORIDE 103 MEQ/L (98-107); GLOMERULAR FILTRATION RATE 69 ML/MIN (>89); GLUCOSE,FASTING 80 MG/DL (74-99); POTASSIUM 4.2 MEQ/L (3.5-5.1); SODIUM (NA) 138 MEQ/L (136-145)
[2016-10-22 11:29] LABS: ALT (GPT) 15 U/L (10-53)
[2016-10-22 11:31] LABS: ALKALINE PHOSPHATASE 99 U/L (45-117); TOTAL BILIRUBIN ADULT 0.4 MG/DL (0.2-1.0)
--- NOTE | 2016-10-22 12:47 | RADRPT ---
EXAM DATE/TIME: 10/22/2016 11:10 [place] COMPARISON: No previous studies available for comparison. INDICATIONS : Evaluate for pneumonia, pneumothorax or communicable disease. Pre-op for a colon resection on October 29, 2016. MEDICAL HISTORY : None. SURGICAL HISTORY : None. ENCOUNTER: Initial ACUITY: 1 day PAIN SCORE: 0/10 LOCATION: Bilateral chest FINDINGS: There is a small right pleural effusion. Lungs are clear. There are atherosclerotic calcifications of the aorta due to chronic atherosclerotic disease. Degenerative changes and hypertrophic changes are seen within the disc space and facets of the thoracic spine. CONCLUSION: Small right pleural effusion. Jihan Martin MD on October 22, 2016 at 12:43 Board Certified Radiologist. This report was verified electronically.
--- NOTE | 2016-10-23 16:52 | EKG ---
Date Performed: 10/22/2016 Time Performed: 10:06:54 PTAGE: 76 years EKG: Sinus rhythm with occasional PACs Otherwise within normal limits Since PREVIOUS TRACING , PACs are new. PREVIOUS TRACIN06/24/2003 13.21 DOCTOR: Paco Morelos Interpretating Date/Time 10/23/2016 16:50:22
== END ==
LOC: CPRE 09:46
PROVIDERS: ATTEND Colon & Rectal Surgery
DX: Z01.812 Encounter for preprocedural laboratory examination (principal); Z01.811 Encounter for preprocedural respiratory examination; Z01.810 Encounter for preprocedural cardiovascular examination; K57.32 Diverticulitis of large intestine without perforation or abscess without bleeding; Z85.038 Personal history of other malignant neoplasm of large intestine
CPT/HCPCS: 36415; 71020; 80053; 81001; 85025; 85610; 85730; 93005